=== PATIENT | female | born 1965 | race Caucasian/White ===

== ENCOUNTER → 2017-05-28 | Day surgery (SDC) | payer OTHER ==
[~2017-05-28] VITALS: Ht 175.3 cm; Wt 68.0 kg
--- NOTE | 2017-05-28 09:04 | Operative Report ---
Operative/Inv Procedure Report Surgery Date: 05/28/17 Name of Procedure: Hemorrhoidectomy: 3 column complete Pre-Operative Diagnosis: 1. Grade 4 internal hemorrhoids 2. External hemorrhoids with complications Post-Operative Diagnosis: Same Estimated Blood Loss: less than 50ml Surgeon/Car Body Mechanic: Leo Fuller Jr., DO Anesthesia: local monitored anesthesi, block Monitors: Per routine Drains: None Specimens: Hemorrhoids to pathology Complications: None Condition: Good Operative Indication: This is a 51-year-old female with severe symptomatic mixed hemorrhoidal disease. She had incarcerated internal hemorrhoid prolapse so her only good surgical option is surgical excision. She presents for a complete surgical hemorrhoidectomy Operative/Procedure Note Note: On the morning before procedure she did a Fleet enema at home. She presented to [facility] was taken into the operating room. In the operating room she was placed in the supine position and received IV sedation. When she was comfortable she was put into lithotomy position in candycane stirrups. The perineum was then prepped and dried in usual fashion. A block was performed using a mixture of half Marcaine plain with 1% lidocaine with epinephrine. A total of 30 mL was used on the block. After completing the block and gentle digital exam was performed and then a Fansler operating proctoscope was placed into the anal canal. The rectum was completely empty port was irrigated to reduce any mucosal or bacteria present. Next an elliptical incision was carried out around the right posterior hemorrhoid column. After excising mucosa and the skin I sharply dissected the hemorrhoid off the underlying tissues. I identified the subcutaneous fibers of the external anal sphincter and then identified the internal anal sphincter. I developed the plane between the internal anal sphincter and the hemorrhoid cushion making sure to protect the muscle. The hemorrhoid was then completely excised. A [id number]-ofizo 2-0 Vicryl was used to ligate the hemorrhoid pedicle. A running 3-0 Vicryl was used to close the mucosa and the anoderm to the level of the dentate line. This exact procedure was then repeated and the right anterior position and then the left lateral position. At this point of the major hemorrhoid tissue had been removed hemorrhoid. The posterior midline she had a flap of this skin with some prolapsing mucosa. I excised the mucosa creating a skin flap. The skin flap was then sewed to the edge of the anal canal to close the defect. This was done with interrupted 4-0 Vicryl suture. At this point we inspected for hemostasis which was good and the procedure was concluded. At the end of this procedure all needle sponges and measurements were accounted for. The patient was converted from lithotomy to supine .The patient tolerated the procedure well taken recovery area in good condition.
== END ==
LOC: STS 02:33
DX: K64.3 Fourth degree hemorrhoids (principal); F17.200 Nicotine dependence, unspecified, uncomplicated
CPT/HCPCS: 88304; J0131; J1100; J2250; J2405